=== PATIENT | male | born 1990 | race Caucasian/White ===

== ENCOUNTER 2016-11-25 14:38 | Emergency (ER) | payer MEDICAID ==
[2016-11-25 15:32] VITALS: BP 136/102
[2016-11-25] MEDS ORDERED: Ketorolac 60 MG/2 ML SDV IM ONE (16:39)
--- NOTE | 2016-11-25 17:11 | EDM.PDOC ---
ED HPI Trauma - General Chief Complaint: Upper Extremity Injury/Pain Stated Complaint: BROKE/FRACTURED RIGHT HAND?? Source: Reports: Patient History Limitations: Reports: No limitations - History of Present Illness INITIAL COMMENTS - FREE TEXT/NARRATIVE: Phil is a 26 year male comes in today with concerns regarding right hand pain. He states that over the last 5 days he has continued to have worsening pain in the lateral aspect. He states that he is unaware of any injury that occurred. Patient notes pain and swelling on the lateral proximal fifth metacarpal. He notes no other injuries. Allergies/ADRs: Allergies No Known Allergies Allergy (Verified 11/25/16 15:45) Home Medications: Ambulatory Orders NK [No Known Home Meds] 10/04/16 [Confirmed 11/25/16] Past Medical History Musculoskeletal History: Reports: Fracture Psychiatric History: Reports: Addiction, Anxiety, Panic attack Dermatologic History: Reports: Other (see below) Other Dermatologic History: MRSA wound on left saez 05/21/16 - Infectious Disease History Infectious Disease History: Reports: MRSA - Past Surgical History HEENT Surgical History: Reports: Other (see below) Other HEENT Surgeries/Procedures: ear surgery to make ear canal bigger Musculoskeletal Surgical History: Reports: Other (see below) Other Musculoskeletal Surgeries/Procedures:: partial amputation of two fingers Social & Family History - Tobacco Use Smoking Status *Q: Heavy Tobacco Smoker Years of Tobacco use: 15 Packs/Tins Daily: 1.5 Used Tobacco, but Quit: No Second Hand Smoke Exposure: Yes - Caffeine Use Caffeine Use: Reports: Soda - Recreational Drug Use Recreational Drug Use: Yes Drug Use in Last 12 Months: Yes Recreational Drug Type: Reports: Marijuana/Hashish Recreational Drug Use Frequency: Daily - Living Situation & Occupation Living situation: Reports: single Occupation: unemployed (lives a few blocks from the hospital.) Review of Systems - Review of Systems Review Of Systems: See Below Constitutional: Reports: no symptoms Eyes: Reports: no symptoms Ears: Reports: no symptoms Nose: Reports: no symptoms Mouth/Throat: Reports: no symptoms Respiratory: Reports: No Symptoms Cardiovascular: Reports: no symptoms GI/Abdominal: Reports: No symptoms Genitourinary: Reports: no symptoms Musculoskeletal: Reports: hand pain (Right fifth metacarpal pain) Skin: Reports: no symptoms Neurological: Reports: No Symptoms Psychiatric: Reports: no symptoms Trauma Exam - Physical Exam Exam: See Below Exam Limited By: No limitations General Appearance: Reports: alert Extremities: Reports: joint effusion (right fifth metacarpal), tenderness Neurologic: Reports: no motor/sensory deficits, alert, normal mood/affect, oriented x 3 Skin: Reports: Normal color, Warm/dry Course - Vital Signs Last Recorded V/S: Last Vital Signs Temp 36.5 C 11/25/16 15:43 Pulse 68 11/25/16 15:43 Resp 16 11/25/16 15:43 BP 136/102 H 11/25/16 15:43 Pulse Ox 99 11/25/16 15:43 - Orders/Labs/Meds Orders: Active Orders 24 hr Category Date Time Status Hand Comp Min 3V Rt [CR] Stat Exams 11/25/16 15:49 Taken Meds: Medications Discontinued Medications Generic Name Dose Route Start Last Admin Trade Name Freq PRN Reason Stop Dose Admin Ketorolac Tromethamine 60 mg 11/25/16 16:39 11/25/16 16:43 Toradol IM 11/25/16 16:40 60 mg ONETIME ONE Administration Departure - Departure Time of Disposition: 17:13 Disposition: Home, Self-Care 01 Condition: good Clinical Impression: Fracture of metacarpal bone, Hand pain, right Instructions: Cast or Splint Care, [id number], Metacarpal Fracture, Easy-to- Read Forms: ED Department Discharge - Problem List Review Problem List Initiated/Reviewed/Updated: Yes - Assessment/Plan Plan: UPPER EXTREMITY Musculoskeletal Physical Examination Constitutional: Vital signs including height and weight were reviewed and documented on the patient's chart. General appearance demonstrates normal development and body habitus. HEENT: Normocephalic, atraumatic. Neurological: The patient is alert and oriented to person, place, and time. Mood and affect are appropriate. Gait and station are normal. Intact sensation is noted. Deep tendon reflexes are equal. Clonus negative. Mixon' s negative. Coordination and balance are normal. Right upper extremity: Inspection/palpation: Normal symmetry and appearance without tenderness. Range of motion: Full range of motion without pain. Stability: Stable through range of motion. Strength: Normal muscle strength and tone. Skin: Normal skin tone without rashes or lesions. Tenderness and swelling noted over the fifth metacarpal. Left upper extremity: Inspection/palpation: Normal symmetry and appearance without tenderness. Range of motion: Full range of motion without pain. Stability: Stable through range of motion. Strength: Normal muscle strength and tone. Skin: Normal skin tone without rashes or lesions. Imaging: I did note a fifth right metacarpal fracture. Plan: At this time I did put him in a splint. We'll see him back on Thursday in the ortho clinic for a recheck. I did advise him to ice elevate and take her on November as needed for his pain. Patient was in agreement with this plan and will notify us of any changes
--- NOTE | 2016-11-26 08:34 | CR ---
Hand Comp Min 3V Rt HISTORY: pain 5th metacarpal COMPARISON: 09/09/2016 FINDINGS: There is an acute fracture distal right fifth metacarpal with mild anterior angulation. 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 There is been interval amputation of the distal aspect of the distal phalanx right third and fourth fingers. No other abnormality is seen. IMPRESSION: 1. Acute oblique fracture distal right fifth metacarpal with mild anterior angulation. 2. Oblique fracture tuft of the distal phalanx right second finger is redemonstrated. 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 3. Interval partial amputation distal phalanx right third and fourth digits.
== END 2016-11-25 17:29 | disposition home or self-care (01) ==
LOC: JP.ED 14:38
DX: S62.336A Displaced fracture of neck of fifth metacarpal bone, right hand, initial encounter for closed fracture (principal); F17.210 Nicotine dependence, cigarettes, uncomplicated; Z98.890 Other specified postprocedural states; X58.XXXA Exposure to other specified factors, initial encounter
CPT/HCPCS: 29125; 73130; 96372; 99283; J1885

== ENCOUNTER 2017-04-27 13:23 | Emergency (ER) | payer MEDICAID ==
[2017-04-27 14:11] VITALS: BP 129/82
--- NOTE | 2017-04-27 14:36 | EDM.PDOC ---
ED HPI GENERAL MEDICAL PROBLEM - General Chief Complaint: Upper Extremity Injury/Pain Stated Complaint: INFECTED RING FINGER ON RT HAND Time Seen by Provider: 04/27/17 14:30 Source of Information: Reports: Patient History Limitations: Reports: No Limitations - History of Present Illness INITIAL COMMENTS - FREE TEXT/NARRATIVE: Pt reports redness with pus noted to tip of right ring finger this week. Now more red and tender. Hx of amputation of that finger tip in August of 2016. Onset: Gradual Duration: Getting Worse Location: Reports: Upper Extremity, Right Severity: Mild Improves with: Reports: None Worsens with: Reports: None Associated Symptoms: Reports: No Other Symptoms Right Hand Pain Score (Numeric/FACES): 9 - Related Data Allergies Allergy/AdvReac Type Severity Reaction Status Date / Time No Known Allergies Allergy Verified 11/25/16 15:45 Home Meds: Home Meds NK [No Known Home Meds] 10/04/16 [History] Past Medical History Musculoskeletal History: Reports: Amputation Psychiatric History: Reports: Addiction, Anxiety, Panic Attack Dermatologic History: Reports: Other (See Below) Other Dermatologic History: MRSA wound on left saez 05/21/16 - Infectious Disease History Infectious Disease History: Reports: MRSA - Past Surgical History HEENT Surgical History: Reports: Other (See Below) Musculoskeletal Surgical History: Reports: Other (See Below) Other Musculoskeletal Surgeries/Procedures:: finger surgery Social & Family History - Tobacco Use Smoking Status *Q: Heavy Tobacco Smoker Years of Tobacco use: 9 Packs/Tins Daily: 1 Used Tobacco, but Quit: No Second Hand Smoke Exposure: Yes - Caffeine Use Caffeine Use: Reports: Coffee, Soda - Recreational Drug Use Recreational Drug Use: Yes Drug Use in Last 12 Months: Yes Recreational Drug Type: Reports: Marijuana/Hashish Recreational Drug Use Frequency: Daily - Living Situation & Occupation Living situation: Reports: Single Occupation: Unemployed Review of Systems - Review of Systems Review Of Systems: See Below Constitutional: Reports: No Symptoms Eyes: Reports: No Symptoms Ears: Reports: No Symptoms Nose: Reports: No Symptoms Mouth/Throat: Reports: No Symptoms Respiratory: Reports: No Symptoms Cardiovascular: Reports: No Symptoms Skin: Reports: Erythema, Wound Neurological: Reports: No Symptoms ED EXAM, GENERAL - Physical Exam Exam: See Below Exam Limited By: No Limitations General Appearance: Alert, WD/WN, No Apparent Distress Respiratory/Chest: No Respiratory Distress, Lungs Clear, Normal Breath Sounds, No Accessory Muscle Use, Chest Non-Tender Cardiovascular: Normal Peripheral Pulses, Regular Rate, Rhythm, No Edema, No Gallop, No JVD, No Murmur, No Rub Extremities: Joint Swelling, Redness (to tip of right ring finger. Pustule noted under the tip.) Skin Exam: Erythema, Increased Warmth Course - Vital Signs Last Recorded V/S: Last Vital Signs Temp 95.4 F 04/27/17 14:21 Pulse 78 04/27/17 14:21 Resp 16 04/27/17 14:21 BP 129/82 04/27/17 14:21 Pulse Ox 93 L 04/27/17 14:21 Departure - Departure Time of Disposition: 14:33 Disposition: Home, Self-Care 01 Condition: Good Clinical Impression: Cellulitis of right ring finger - Discharge Information Referrals: PCP,None [Primary Care Provider] - Additional Instructions: Rx for Doxycycline given due to history of MRSA. Pt to start it today. To soak hand daily in Epsom salt and warm water. Followup this week with primary care for recheck of infection. - Problem List & Annotations (1) Cellulitis of right ring finger SNOMED Code(s): 93238822 Code(s): L03.011 - CELLULITIS OF RIGHT FINGER Status: Acute Priority: Low Current Visit: Yes
== END 2017-04-27 15:04 | disposition home or self-care (01) ==
LOC: JP.ED 13:23
DX: L03.011 Cellulitis of right finger (principal); F17.210 Nicotine dependence, cigarettes, uncomplicated; Z98.890 Other specified postprocedural states; Z89.021 Acquired absence of right finger(s)
CPT/HCPCS: 99283

== ENCOUNTER 2020-05-26 11:29 | Emergency (ER) | payer MEDICAID ==
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
--- NOTE | 2020-05-26 12:52 | CRLCT ---
Indication: Head injury. Technique: Multiple contiguous axial images were obtained from the skullbase to the vertex without intravenous contrast enhancement. Please note that all CT scans at this facility use dose modulation, iterative reconstruction, and/or weight-based dosing when appropriate to reduce radiation dose to as low as reasonably achievable. Comparison: None Findings: The ventricles are symmetric and normal in size and morphology. The basal cisterns are widely patent. The arellano/white matter interface is within normal limits. No intra-axial or extra-axial hemorrhage is identified. No mass, mass effect or midline shift is seen. The bony calvarium is intact. The visualized paranasal sinuses and mastoid air cells are clear. Impression: No acute intracranial process. Please note that all CT scans at this facility use dose modulation, iterative reconstruction, and/or weight-based dosing when appropriate to reduce radiation dose to as low as reasonably achievable. Dictated by Angela Anand MD @ May 26 2020 12:50PM Signed by Dr. Angela Anand @ May 26 2020 12:51PM
--- NOTE | 2020-05-26 13:40 | CRLCT ---
DATE: 05/26/2020. CLINICAL HISTORY: Patient with head injury. TECHNIQUE: Standard CT scanning of the facial bones was performed. COMPARISON: None. FINDINGS: There is a minimally displaced fracture of the right mandibular body which extend medially and superiorly between the right mandibular incisors (teeth numbers 25-26) as well as the right mandibular incisor and model cuspid (teeth numbers 26-27). In addition, there is a minimally displaced fracture through the left angle of the mandible, just dorsal to the last molar (tooth number 17). No evidence of dislocation of the temporomandibular joints. There is poor dentition with multiple dental caries and periapical cysts. The nasal bones are normal. The diggs of the maxillary sinus are normal. The orbital diggs are normal. The pterygoid plates are normal. IMPRESSION: 1. minimally displaced fractures involving the right mandibular body, with extension of the fracture lines between teeth #`s 25-26 and 26-27 as detailed above, as well as fracture of the left angle of the mandible just dorsal to tooth #17, as detailed above. 2. No additional displaced fractures involving the visualized facial bones. Please note that all CT scans at this facility use dose modulation, iterative reconstruction, and/or weight-based dosing when appropriate to reduce radiation dose to as low as reasonably achievable. Dictated by Henrry Zuñiga MD @ May 26 2020 2:06PM Signed by Dr. Henrry Zuñiga @ May 26 2020 2:22PM
[2020-05-26] MEDS ORDERED: Ondansetron 4 MG/2 ML SDV IVPUSH ONE (14:05)
[2020-05-26] MEDS ORDERED: HYDROmorphone 0.5 MG/0.5 ML Syringe IVPUSH ONE (14:07)
[2020-05-26 14:59] VITALS: BP 144/109; PULSE 88
== END 2020-05-26 15:30 | disposition home or self-care (01) ==
LOC: JP.ED 11:29
DX: S02.601A Fracture of unspecified part of body of right mandible, initial encounter for closed fracture (principal); F17.210 Nicotine dependence, cigarettes, uncomplicated; Y04.2XXA Assault by strike against or bumped into by another person, initial encounter
CPT/HCPCS: 70450; 70486; 96374; 96375; 99283; J1170; J2405; 99284

== ENCOUNTER 2023-05-20 16:31 | Emergency (ER) | payer MEDICAID | END 2023-05-20 17:34 | disposition other institution (70) | LOC: JP.ED 16:31 | DX: Z53.21 Procedure and treatment not carried out due to patient leaving prior to being seen by health care provider (principal) ==